=== PATIENT | female | born 1995 | race Caucasian/White ===

== ENCOUNTER 2023-09-29 11:47 | Emergency (ER) | payer OTHER, SELFPAY ==
[2023-09-29 11:55] VITALS: BP 146/103
[2023-09-29 12:13] VITALS: BP 123/93
[2023-09-29 12:14] VITALS: BMI 31.7
--- NOTE | 2023-09-29 13:39 | ED.GENMED ---
History of Present Illness
General
Chief Complaint: Eye Problems
Source: patient and spouse
Exam Limitations: none
Time Seen by Provider: 09/29/23 13:11
Travel History
Have you had any contact with someone who has COVID-19?: No
Do you have any symptoms of coronavirus? Fever > 100 degrees, chills, cough, shortness of breath, sore throat, loss of taste or smell, muscle aches, or headache?: No
History of Present Illness
History of Present Illness:
28-year-old female who presents with symptoms she was concerned about at home. She states that last night for less than a minute while cooking soup, she felt dizzy. She then walked it over to the table and states that she developed a sense of room
spinning. Again, it lasted only about a minute. She states then today while at home she was on her phone when she developed sort of a kaleidoscope of vision changes. She states it was in both eyes and there was a peripheral halo. She states the
symptoms lasted for maybe less than 5 minutes. All symptoms have since resolved. She states maybe she had a little bit of a headache after the event but is not sure if it was because she became anxious. She denies fevers, cough, shortness of
breath, motor weakness, numbness, tingling, speech changes. No vision loss. She does report that her mom has a long history of migraines. She denies any recent head trauma or neck pain.
Past History
Past History
ED Past Medical History: None
Phy Exam
Physical Exam
Physical Exam:
CONSTITUTIONAL Patient alert and oriented to person, place and time. Well-appearing. Vital signs reviewed.
HEAD atraumatic, normocephalic.
EYES eyelids normal to inspection, Pupils equally round and reactive to light, Extraocular muscles intact, Conjunctiva normal, Sclera normal.
ENT TMs normal bilaterally
NECK normal range of motion, Trachea midline, no jugular venous distention.
RESPIRATORY CHEST No respiratory distress noted, Chest expansion equal, Bilateral breath sounds clear.
CARDIOVASCULAR regular rate and rhythm, Heart sounds normal.
ABDOMEN abdomen nontender, Bowel sounds normal. No distention.
BACK normal inspection, no obvious deformities
UPPER EXTREMITY range of motion normal, Motor strength normal, no cyanosis, no edema.
LOWER EXTREMITY range of motion normal, Motor strength normal, no cyanosis, no edema.
NEURO Speech normal, No focal motor deficits, Josue coma scale 15, Memory normal, Cranial Nerves intact to screening exam. Normal [id number]. Normal [id number]. No pronator drift. No nystagmus
SKIN skin warm, dry, and normal in color.
PSYCHIATRIC patient oriented to person place and time, Normal affect.
Course
Orders/Labs/Results
Orders:
Orders
09/29/23 11:56
CT Head W/o Iv Contrast Urgent
Comment:
Reason For Exam: loss of vision
Vital Signs
Initial and Last Documented VS:
Initial Vital Signs
Temp Pulse Resp BP Pulse Ox
99.2 F 115 17 146/103 99
09/29/23 11:55 09/29/23 11:55 09/29/23 11:55 09/29/23 11:55 09/29/23 11:55
Last Documented Vital Signs
Temp Pulse Resp BP Pulse Ox
99.2 F 108 18 123/93 97
09/29/23 11:55 09/29/23 12:15 09/29/23 12:15 09/29/23 12:13 09/29/23 12:15
MDM/Problems Addressed
Differential Diagnosis Includes:
Migraine with aura, seizure, CVA, dissection
MDM/Problems Addressed:
Vision changes, vertigo
*Radiology
Radiology exam reviewed: preliminary read by ED provider (No obvious bleeding) and radiology read reviewed
*Pulse Oximetry
Patient hypoxic: no
*Critical Care Note
Total Time (30-74mins, 75-104mins- exclusive of procedures): Not Applicable
Data Reviewed
Further Testing Considered But Not Given:
Considered MRI but symptoms have resolved and no clinical concern for CVA or AVM
Patient Management
Escalation/DeEscalation of care consider admission/obs:
pt appears well. nonfocal exam. CT neg. will need further follow-up with PCP. For now watch and wait. Do not feel that she needs inpatient management at this time. I did recommend PCP follow-up. May need neurology follow-up if any symptoms recur
or persist
ED Attending Note
-
Portions of this chart may have been created with voice recognition software.� Occasional wrong word or��sound alike� substitutions may have occurred due to the inherent limitations of voice recognition software.
Discharge Plan
Departure
Patient Disposition: Home (Routine Discharge)
Date of Disposition: 09/29/23
Time of Disposition: 13:45
Patient with high blood pressure during this ER visit?: Yes
Discharge Problem:
Alteration in vision, Dizziness
Instructions: Dizziness, Adult ED
Prescriptions:
No Action
No Current Medications
0
Referrals:
David Temple MD [Active] -
Jovan Fabian DO [Family Provider] -
Activity Restrictions/Additional Instructions:
Please see your doctor in the next 3 to 5 days for follow-up and reevaluation. If symptoms persist, further workup may be necessary to include an MRI and EEG. Return immediately for Clotilde weakness of any kind, seizure activity, changes in
mentation, worsening symptoms or any other concerns.
Interventions
Interventions:
*Risk Screen - Suicide Last Done: 09/29/23 12:15
*General Assessment Last Done: 09/29/23 12:15
*Neglect/Abuse Screening Last Done: 09/29/23 12:15
ED- Fall Risk Assessment Last Done: 09/29/23 12:15
*ED COVID-19 Vaccine History Last Done: 09/29/23 11:55
== END 2023-09-29 13:52 | disposition home or self-care (01) ==
LOC: EMR 11:47
PROVIDERS: EMERGENCY PHYSICIAN Emergency Medicine; FAMILY PHYSICIAN Family Medicine
DX: R42 Dizziness and giddiness (principal)
CPT/HCPCS: 99284; 70450

== ENCOUNTER → 2024-04-06 16:35 | Outpatient (REF) | payer OTHER, SELFPAY | LOC: PNTC 16:35 | PROVIDERS: ATTENDING PHYSICIAN Obstetrics & Gynecology | DX: Z36.0 Encounter for antenatal screening for chromosomal anomalies (principal); Z36.82 Encounter for antenatal screening for nuchal translucency; Z34.00 Encounter for supervision of normal first pregnancy, unspecified trimester; O99.210 Obesity complicating pregnancy, unspecified trimester | CPT/HCPCS: 76801; 76813 ==

== ENCOUNTER → 2024-05-04 16:59 | Outpatient (REF) | payer OTHER, SELFPAY | LOC: PNTC 16:59 | PROVIDERS: ATTENDING PHYSICIAN Obstetrics & Gynecology | DX: O99.210 Obesity complicating pregnancy, unspecified trimester (principal) | CPT/HCPCS: 76805 ==

== ENCOUNTER → 2024-05-13 17:38 | Outpatient (REF) | payer OTHER, SELFPAY | LOC: RAD 17:38 | PROVIDERS: ATTENDING PHYSICIAN Student in an Organized Health Care Education/Training Program; FAMILY PHYSICIAN Family Medicine | DX: O26.859 Spotting complicating pregnancy, unspecified trimester (principal) | CPT/HCPCS: 76815 ==

== ENCOUNTER → 2024-06-02 16:16 | Outpatient (REF) | payer OTHER, SELFPAY | LOC: PNTC 16:16 | PROVIDERS: ATTENDING PHYSICIAN Obstetrics & Gynecology | DX: O99.210 Obesity complicating pregnancy, unspecified trimester (principal) | CPT/HCPCS: 76811 ==

== ENCOUNTER → 2024-07-20 10:56 | Outpatient (REF) | payer OTHER, SELFPAY | LOC: PNTC 10:56 | PROVIDERS: ATTENDING PHYSICIAN Obstetrics & Gynecology | DX: O99.210 Obesity complicating pregnancy, unspecified trimester (principal) | CPT/HCPCS: 76816 ==

== ENCOUNTER → 2024-09-14 14:00 | Outpatient (REF) | payer OTHER, SELFPAY | LOC: PNTC 14:00 | PROVIDERS: ATTENDING PHYSICIAN Obstetrics & Gynecology | DX: O99.210 Obesity complicating pregnancy, unspecified trimester (principal) | CPT/HCPCS: 76816 ==

== ENCOUNTER → 2024-09-29 17:21 | Outpatient (REF) | payer OTHER, SELFPAY | LOC: PNTC 17:21 | PROVIDERS: ATTENDING PHYSICIAN Obstetrics & Gynecology | DX: O36.8390 Maternal care for abnormalities of the fetal heart rate or rhythm, unspecified trimester, not applicable or unspecified (principal) | CPT/HCPCS: 36415; 59025; 76815 ==

== ENCOUNTER → 2024-10-21 13:54 | Outpatient (REF) | payer OTHER, SELFPAY | LOC: PNTC 13:54 | PROVIDERS: ATTENDING PHYSICIAN Obstetrics & Gynecology | DX: O48.0 Post-term pregnancy (principal) | CPT/HCPCS: 59025; 76815 ==

== ENCOUNTER 2024-10-22 19:09 | Inpatient (IN) | payer OTHER, SELFPAY ==
[2024-10-22 19:18] VITALS: BMI 38.1
[2024-10-22] MEDS: CYTOTEC 25 MICROGRAM VAG (20:21)
[2024-10-22 20:24] LABS: % Basophils 0.3 % (0-2); % Eosinophils 0.5 % (0-6); % Immature Granulocytes 1.3 % (0-0.5); % Lymphocytes 20.5 % (20.5-51.1); % Monocytes 5.9 % (1.7-9.3); % Neutrophils 71.5 % (42.2-75.2); Absolute Eosinophils 0.1 10^3/uL (0-0.7); Absolute Immature Granulocytes 0.2 10^3/uL (0-0.05); Absolute Lymphocytes 2.3 10^3/uL (1.2-3.4); Absolute Monocytes 0.7 10^3/uL (0.1-0.6); Hematocrit 36.5 % (37.0-47.0); Hemoglobin 11.9 g/dL (12.0-16.0); Mean Corp Hgb Conc. 32.6 g/dL (33.0-37.0); Mean Corpuscular Hgb 27.5 pg (27.0-31.0); Mean Corpuscular Volume 84.5 fL (81.0-99.0); Mean Platelet Volume 10.5 fL (7.4-10.4); Nucleated Red Blood Cells % 0 %; Platelet Count 275 10^3/uL (130-400); Red Blood Cell Count 4.32 10^6/uL (4.20-5.40); Red Cell Dist. Width 14.2 % (11.5-14.5); White Blood Cell Count 11.2 10^3/uL (4.8-10.8)
[2024-10-22 20:43] VITALS: BP 129/83
[2024-10-23] MEDS: PRENATAL PLUS PO ×2 (01:18→23:05)
[2024-10-23] MEDS: LR 1000 IV (02:34)
[2024-10-23] MEDS: STADOL 1 MG IV ×2 (04:00→05:41)
[2024-10-23] MEDS: PITOCIN 30 UNITS/NSS 500 ML IV (09:59)
[2024-10-23] MEDS: SUBLIMAZE 100 MCG EPIDURAL (12:44)
[2024-10-23] MEDS: FENTANYL/BUPIVACAINE 100 EPIDURAL ×2 (12:45→20:51)
[2024-10-24] MEDS: LR 1000 IV (00:04)
[2024-10-24] MEDS: PITOCIN 30 UNITS/NSS 500 ML IV (01:05)
[2024-10-24] MEDS: XYLOCAINE-MPF 1% VIAL 30 ML INFIL (01:10)
[2024-10-24] MEDS: MOTRIN 600 MG PO ×3 (03:00→17:26)
[2024-10-24] MEDS: TYLENOL 650 MG PO ×3 (04:46→17:27)
[2024-10-24] MEDS: SENOKOT-S 1 TABLET PO (09:01)
[2024-10-24] MEDS: PRENATAL PLUS PO (22:20)
[2024-10-25] MEDS: MOTRIN 600 MG PO ×4 (00:04→21:21)
[2024-10-25] MEDS: TYLENOL 650 MG PO ×4 (00:04→21:21)
[2024-10-25 05:22] LABS: Hematocrit 32.6 % (37.0-47.0); Hemoglobin 10.7 g/dL (12.0-16.0)
[2024-10-25] MEDS: SENOKOT-S 1 TABLET PO (09:08)
[2024-10-25] MEDS: PRENATAL PLUS 1 TABLET PO (21:21)
[2024-10-26] MEDS: TYLENOL 650 MG PO (04:07)
[2024-10-26] MEDS: MOTRIN 600 MG PO (04:07)
[2024-10-26 13:23] LABS: Syphilis/T. pallidum Ab Reflex Negative (Negative)
== END 2024-10-26 13:00 | disposition home or self-care (01) | DRG 806 ==
LOC: LDRP 19:09
PROVIDERS: Obstetrics & Gynecology; ADMITTING PHYSICIAN Obstetrics & Gynecology; FAMILY PHYSICIAN Family Medicine
PROC: 3E0P7VZ Introduction of Hormone into Female Reproductive, Via Natural or Artificial Opening (ICD-10-PCS; 2024-10-22)
PROC: 4A1HXCZ Monitoring of Products of Conception, Cardiac Rate, External Approach (ICD-10-PCS; 2024-10-23)
PROC: 0UQMXZZ Repair Vulva, External Approach (ICD-10-PCS; 2024-10-24)
PROC: 0KQM0ZZ Repair Perineum Muscle, Open Approach (ICD-10-PCS; 2024-10-24)
PROC: 10S0XZZ Reposition Products of Conception, External Approach (ICD-10-PCS; 2024-10-24)
PROC: 10E0XZZ Delivery of Products of Conception, External Approach (ICD-10-PCS; 2024-10-24)
DX: O48.0 Post-term pregnancy (principal); O99.354 Diseases of the nervous system complicating childbirth; O66.0 Obstructed labor due to shoulder dystocia; O70.1 Second degree perineal laceration during delivery; G43.909 Migraine, unspecified, not intractable, without status migrainosus; Z37.0 Single live birth; Z3A.41 41 weeks gestation of pregnancy
CPT/HCPCS: 85014; 85018; 85025; 86780; 86850; 86900; 86901